=== PATIENT | female | born 1970 | race Caucasian/White ===

== ENCOUNTER → 2016-09-09 | Outpatient (CLI) | payer BC ==
[~2016-09-09] MED LIST: ASPEC81 PO; GLC500 PO; NAPR1TAB9 PO
--- NOTE | 2016-09-09 14:16 | DIAGNOSTIC IMAGING REPORT ---
PELVIS 1 OR 2 VIEW ROUTINE CLINICAL HISTORY: RT HIP PAIN trauma COMPARISON: 10/16/2012 DISCUSSION: Minimal degenerative change hips bilaterally. Slight increase in acetabular angles. No evidence for acute bony pathology. There is no evidence for acetabular protrusion. Sacral foramina are symmetric. There is no evidence for soft tissue swelling. IMPRESSION: No acute process. Minimal degenerative change. Electronically signed by: Vito hCavez M.D. 09/09/2016 2:15 PM Dictated Date/Time: 09/09/2016 2:14 PM
--- NOTE | 2016-09-09 14:17 | DIAGNOSTIC IMAGING REPORT ---
RIGHT HIP UNILATERAL 2 VIEWS CLINICAL HISTORY: RT HIP PAIN Right trauma. Pain. COMPARISON: None. DISCUSSION: Minimal degenerative change right hip. Slight increase in acetabular angle. Minimal calcific trochanteric bursitis. No evidence for acetabular protrusion. There is no evidence for soft tissue swelling. IMPRESSION: Minimal degenerative change. No acute bony abnormality. Electronically signed by: Vito Chavez M.D. 09/09/2016 2:16 PM Dictated Date/Time: 09/09/2016 2:15 PM
== END | disposition home or self-care (01) ==
LOC: C.RAD 13:18
PROVIDERS: ATTEND Nurse Practitioner Family
DX: M25.551 Pain in right hip (principal); Z91.81 History of falling

== ENCOUNTER → 2016-10-14 | Outpatient (CLI) | payer BC ==
--- NOTE | 2016-10-14 12:05 | DIAGNOSTIC IMAGING REPORT ---
LUMBAR SPINE MIN 4 VIEWS HISTORY:46 yearsFemaleLUMBAR RADICULOPATHY COMPARISON: Lumbar spine radiographs 08/13/2014. TECHNIQUE: 5 views of the lumbar spine. FINDINGS: 5 nondrinking lumbar type vertebral segments are present. 1.1 x 1.0 cm calcific density focus projecting over the left lower abdomen is unchanged and nonspecific. Suspected gallstones of the right upper abdomen are unchanged. There is intervertebral disc space narrowing again seen at the L2-L3 and L5-S1 levels. Bilateral remote pars defects at L5 are redemonstrated with unchanged 9 mm anterolisthesis of L5 on S1. Moderate facet arthropathy is seen within the lower lumbar spine. No acute fracture or dislocation. IMPRESSION: 1. No acute fracture or dislocation. 2. Unchanged intervertebral disc space narrowing at L2-L3 and L5-S1. 3. Remote bilateral pars defects at L5 with 9 mm anterolisthesis L5 on S1. 4. Cholelithiasis. The above report was generated using voice recognition software. It may contain grammatical, syntax or spelling errors. Electronically signed by: Travis Noe M.D. 10/14/2016 12:04 PM Dictated Date/Time: 10/14/2016 12:01 PM
== END | disposition home or self-care (01) ==
LOC: C.RDSM 13:44
PROVIDERS: ATTEND Family Medicine
DX: M54.16 Radiculopathy, lumbar region (principal)